=== PATIENT | female | born 1985 | race Caucasian/White ===

== ENCOUNTER → 2017-12-27 06:23 | Outpatient (CLI) | payer BC, SELFPAY ==
--- NOTE | 2017-12-27 06:35 | MRI_ITS ---
STUDY: MRI BRAIN WITH AND WITHOUT CONTRAST REASON FOR EXAM: Female, 32 years old. bilat optic nerve edema, eye pressure; r/o mass T sagittal sinus thrombosis TECHNIQUE: Standardized multiplanar fat and water weighted pulse sequences were obtained. 10 ml of Gadavist contrast material was administered intravenously for the contrast portion of the examination. COMPARISON: None. FINDINGS: Normal size of the ventricles and extra-axial spaces for the patient's age. Normal white matter tracts of the supratentorial brain. Normal bilateral basal ganglia. Normal thalami. There is no extra-axial fluid accumulation. Normal flow voids within the major intracranial circulation suggesting patency by spin echo criteria. Normal venous enhancement. There is no enhancing intra-axial or extra-axial abnormality. There is enlargement of the sella turcica with increased CSF within the sella and flattening of the pituitary gland consistent with an empty sellar syndrome. Normal infundibular stalk, hypothalamus, and optic chiasm. Normal tectal plate and pineal gland. Normal midbrain, delfina and medulla. The cerebellar tonsils are low-lying the tip of the tonsils is approximately 5 mm inferior to the foramen magnum. Normal basal cisterns. Normal bilateral temporal bones. Normal bilateral internal auditory canals. There is ectasia of the optic nerve sheaths bilaterally suggesting intracranial hypertension. Normal visualized paranasal sinuses. Normal calvarium and skull base. Normal visualized soft tissue structures. Normal visualized upper cervical spine. MRI/Brain W/WO Contrast IMPRESSION: Findings suggestive of intracranial hypertension. There is no evidence of intracranial neoplasm. There is no evidence of hydrocephalus. There is no evidence of dural venous sinus thrombosis. Electronically Signed: Isabelle Acevedo MD at 10:29 EDT Tel , Service support ,
--- NOTE | 2017-12-27 06:35 | MRI_ITS ---
STUDY: EXAMINATION - MRV BRAIN WITHOUT CONTRAST REASON FOR EXAM: Female, 32 years old. bilat optic nerve edema, eye pressure; r/o mass T sagittal sinus thrombosis TECHNIQUE: 3D [id number] (TOF) imaging was performed in a 1.5 amairani MRI scanner. COMPARISON: None. FINDINGS: Normal flow within the superior sagittal sinus. Normal flow within the superficial cortical veins. Normal flow within the paired internal cerebral veins, vein of Jeffery and straight sinus. Normal flow within the left transverse and sigmoid sinuses. There is hypoplastic right transverse sinus. Normal flow within the bilateral jugular bulbs. MRI/MRV Head Without Contrast IMPRESSION: Normal unenhanced MRV of the brain. Electronically Signed: Isabelle Acevedo MD at 10:10 EDT Tel , Service support ,
== END ==
PROVIDERS: Family Provider Student in an Organized Health Care Education/Training Program; PCP Student in an Organized Health Care Education/Training Program; Visit Provider Ophthalmology
DX: H47.10 Unspecified papilledema (principal)
CPT/HCPCS: 70544; 70553; A9585

== ENCOUNTER → 2018-01-05 12:27 | Outpatient (CLI) | payer BC, SELFPAY ==
--- NOTE | 2018-01-05 12:29 | RAD_ITS ---
PROCEDURE: Fluoroscopic guided Lumbar Puncture. DATE: January 05, 2018. CLINICAL INDICATION: Papilledema. PHYSICIAN: Sarath Gillette M.D. MEDICATIONS: 1% lidocaine administered subcutaneously for local anesthesia. ACCESS SITE: Lower posterior back. NEEDLE: 22-gauge spinal needle. SPECIMEN: Approximately 12 mL clear]CSF fluid. FLUOROSCOPY TIME (if supplied): (0:42) minutes/seconds COMPLICATIONS: None immediate. The risks, benefits, and alternatives to the procedure were explained to the patient. The specific risks of bleeding, infection, and neurovascular injury were detailed and accepted. Witnessed informed consent was obtained. The patient was placed on the fluoroscopic table in the prone position. The level for needle entry was determined and marked. The overlying skin was cleaned and prepped in the usual sterile fashion. 2% lidocaine was administered subcutaneously for local anesthesia. Under fluoroscopic guidance a 22-gauge spinal needle was advanced. The thecal sac was entered at the L2-L3 vertebral level. The inner stylet was removed. There was spontaneous flow of clear CSF fluid. The opening pressure measured 21 mm of water. The patient was placed in a reversed Trendelenburg position. Approximately 12 mL of cerebrospinal fluid was collected using gravity. The specimen was collected and submitted to the laboratory for further evaluation. The needle was withdrawn,. Hemostasis was achieved and a sterile dressing placed. The patient tolerated the procedure well without any immediate complications. The patient was placed supine with head elevated and returned to the floor in stable condition. RAD/Fluoro Guided Lumbar Puncture IMPRESSION: Successful fluoroscopic-guided lumbar puncture. Electronically Signed: Sarath Gillette MD at 13:53 EDT Tel [phone], Service support ,
[2018-01-05 12:36] VITALS: BP 134/74; PULSE 69; RESP 14; TEMP 36.8; O2SAT 100; BMI 38.2
[2018-01-05 13:45] VITALS: BP 111/64; PULSE 87; RESP 16; O2SAT 100
[2018-01-05 14:01] LABS: Body Fluid Polynuclear WBC # 0.001 10^3/uL; Total Cell Count CSF 0.001 10^3/uL (0.000-0.000); White Count, CSF 0.001 10^3/uL (0.000-0.000)
[2018-01-05 14:14] LABS: Appearance CSF (character) CLEAR (Clear); Auto B Fluid Analyzer BKGD Ct COUNTS W/IN LIMITS (W/IN LIMITS); Body Fluid QC Type(s) BF1Q; CSF Color COLORLESS (Colorless); RBC Count, Spinal Fluid 0 /mm-3 (None seen); Tested Tube # 4
--- NOTE | 2018-01-05 14:37 | NURSING ---
d/c instructions reviewed with pt. pt verbalized understanding. pt dressed independently and escorted to waiting room to meet . Steady gait. Refused WC.
[2018-01-06 09:47] LABS: Pathologist Review Reviewed
== END ==
PROVIDERS: Family Provider Student in an Organized Health Care Education/Training Program; PCP Student in an Organized Health Care Education/Training Program; Visit Provider Ophthalmology
DX: H47.10 Unspecified papilledema (principal)
CPT/HCPCS: 62270; 77003; 87070; 87205; 89050; 89051